=== PATIENT | female | born 1970 | race Hispanic/Latino ===

== ENCOUNTER 2020-01-31 18:59 | Emergency (ER) | payer SELFPAY ==
[~2020-01-31] VITALS: Ht 154.9 cm; Wt 135.2 kg
--- OUTSIDE RECORDS SUMMARY | 2020-01-31 19:01 | XMS REPORT | Clinical Summary ---
Author Author [facility] Address Unknown Phone Unavailable Care Team Providers Care Fit Model Name Role Phone PCP Unavailable Allergies No Known Allergies Medications Not on file Active Problems Not on file Encounters Care Team Description Date Type Specialty Palmer Sheldon MD 09/25/2019 Emergency Emergency Medicine after 01/30/2019 Social History Date Tobacco Use Types Packs/Day Years Used Never Assessed Sex Assigned at Date Recorded Not on file Industry Job Start Date Occupation Not on file Not on file Not on file Travel End Travel History Travel Start No recent travel history available. Last Filed Vital Signs Time Taken Vital Sign Reading 09/25/2019 6:01 PM [employer] Blood Pressure 150/86 09/25/2019 6:01 PM [employer] Pulse 74 09/25/2019 6:02 PM [employer] Temperature 36.2 C (97.1 F) 09/25/2019 6:01 PM [employer] Respiratory Rate 18 09/25/2019 6:01 PM [employer] Oxygen Saturation 97% - Inhaled Oxygen - Concentration 09/25/2019 6:01 PM [employer] Weight 136.5 kg (301 lb) 09/25/2019 6:01 PM [employer] Height 154.9 cm (5' 1") 09/25/2019 6:01 PM [employer] Body Mass Index 56.87 Plan of Treatment Not on file Results Not on fileafter 01/30/2019 Insurance Payer Benefit Subscriber ID Type Phone Address Plan / Group BLUE CROSS/BLUE [employer]IELD BCBS PPO xxxxxxxxxxxx PPO [phone] [address] [place] [address] CHOICE
[2020-01-31] MEDS ORDERED: ALBUTEROL SULF 0.083% NEB SOLN 3 ML NEB NEB STA (19:10)
[2020-01-31] MEDS ORDERED: ALBUTEROL/IPRATROPIUM 3 ML NEB ONE (19:15)
[2020-01-31] MEDS ORDERED: METHYLPREDNISOLONE SOD SUCC 125 MG/2ML VIAL IV ONE (19:15)
--- NOTE | 2020-01-31 19:16 | NUR ---
pt receiving hhn tx at this time
[2020-01-31 19:19] LABS: BASOPHILS # (AUTO) 0.1 (0.0-0.1); BASOPHILS % 0.5 % (0.0-1.0); EOSINOPHILS # (AUTO) 0.6 (0.0-0.4); EOSINOPHILS % 6.1 % (0.0-6.0); HEMATOCRIT 42.3 % (34.2-44.1); HEMOGLOBIN 13.5 g/dL (12.0-16.0); LYMPHOCYTES % 28.1 % (18.0-39.1); MEAN CORPUSCULAR HEMOGLOBIN 29.3 pg (28-32); MEAN CORPUSCULAR HGB CONC 31.9 g/dL (31-35); MONOCYTES # (AUTO) 0.8 (0.2-0.8); MONOCYTES % 7.1 % (4.4-11.3); NEUTROPHILS # (AUTO) 6.1 (2.1-6.9); NEUTROPHILS % 57.6 % (38.7-80.0); PLATELET COUNT 239 x10e3/uL (140-360)
--- NOTE | 2020-01-31 19:19 | Emergency Department Note ---
History of Present Illnes History of Present Illness Chief Complaint: Respiratory History of Present Illness This is a 49 year old female WITH H/O CHF AND ASTHMA WHO PRESENTS FOR WORSENING SOB AND WHEEZING FOR PAST 2 DAYS, PT IS VISITING FROM THE [facility]. Historian: Patient Arrival Mode: Car Onset (how long ago): day(s) (2) Location: CHEST Quality: SOB, WHEEZING Radiation: non-radiation Severity: mild Onset quality: gradual Duration (how long): day(s) (2) Timing of current episode: intermittent Progression: unchanged Chronicity: recurrent Relieving factors: none Exacerbating factors: movement Associated symptoms: cough, shortness of breath Treatments prior to arrival: none Risk factors: CHF Past Medical/Family History Physician Review I have reviewed the patient's past medical and family history. Any updates have been documented here. Past Medical History Recent Fever: No Clinical Suspicion of Infectio: No New/Unexplained Change in Ment: No Past Medical History: Hypertension, CHF, Asthma Past Surgical History: None, Tubal Ligation Social History Smoking Cessation: Never Smoker Counseling Performed: No Alcohol Use: None Any Illegal Drug Use: No TB Exposure/Symptoms: No Physically hurt or threatened: No Family History Family history of heart diseas: No Other Last Tetanus: UTD Any Pre-Existing Lines (PICC,: No Is patient up to date on immun: Yes Last Flu: UTD Last Pneumovax: UTD Review of Systems Review of Systems Constitutional: no symptoms EENTM: no symptoms Cardiovascular: no symptoms Respiratory: as per HPI, cough, dyspnea, wheezing Gastrointestinal: no symptoms Genitourinary: no symptoms Musculoskeletal: no symptoms Neurological: no symptoms Psychological: no symptoms Endocrine: no symptoms Hematological/Lymphatic: no symptoms Review of other systems All other systems reviewed and negative. Physical Exam Related Data Allergies: Coded Allergies: No Known Allergies (Unverified , 01/31/20) Triage Vital Signs Vital Signs Date Time Temp Pulse Resp B/P (MAP) Pulse Ox O2 Delivery O2 Flow Rate FiO2 01/31/20 19:01 99.1 90 18 154/84 97 Vital signs reviewed: Yes Physical Exam CONSTITUTIONAL Constitutional: obese HENT HENT: normocephalic, atraumatic, oropharynx clear/moist, nose normal HENT L/R: left ext ear normal, right ext ear normal EYES Eyes: PERRL, conjunctivae normal NECK Neck: ROM normal PULMONARY Pulmonary: effort normal, other (MODERATE WHEEZING TO LOWER LOBES, NO DISTRESS) CARDIOVASCULAR Cardiovascular: regular rhythm, heart sounds normal, capillary refill normal, normal rate GASTROINTESTINAL Abdominal: soft, nontender, bowel sounds normal GENITOURINARY Genitourinary: exam deferred SKIN Skin: warm, dry MUSCULOSKELETAL Musculoskeletal: ROM normal NEUROLOGICAL Neurological: alert, oriented x 3, no gross motor or sensory deficits PSYCHOLOGICAL Psychological: mood/affect normal, judgement normal Results Laboratory Laboratory Laboratory Tests Test 01/31/20 19:07 White Blood Count 10.51 x10e3/uL (4.8-10.8) Red Blood Count 4.60 x10e6/uL (3.6-5.1) Hemoglobin 13.5 g/dL (12.0-16.0) Hematocrit 42.3 % (34.2-44.1) Mean Corpuscular Volume 92.0 fL (81-99) Mean Corpuscular Hemoglobin 29.3 pg (28-32) Mean Corpuscular Hemoglobin Concent 31.9 g/dL (31-35) Red Cell Distribution Width 14.0 % (11.7-14.4) Platelet Count 239 x10e3/uL (140-360) Neutrophils (%) (Auto) 57.6 % (38.7-80.0) Lymphocytes (%) (Auto) 28.1 % (18.0-39.1) Monocytes (%) (Auto) 7.1 % (4.4-11.3) Eosinophils (%) (Auto) 6.1 % (0.0-6.0) Basophils (%) (Auto) 0.5 % (0.0-1.0) Neutrophils # (Auto) 6.1 (2.1-6.9) Lymphocytes # (Auto) 3.0 (1.0-3.2) Monocytes # (Auto) 0.8 (0.2-0.8) Eosinophils # (Auto) 0.6 (0.0-0.4) Basophils # (Auto) 0.1 (0.0-0.1) Absolute Immature Granulocyte (auto 0.06 x10e3/uL (0-0.1) Sodium Level 142 mmol/L (136-145) Potassium Level 3.9 mmol/L (3.5-5.1) Chloride Level 103 mmol/L (98-107) Carbon Dioxide Level 28 mmol/L (22-29) Anion Gap 14.9 mmol/L (8-16) Blood Urea Nitrogen 11 mg/dL (7-26) Creatinine 0.80 mg/dL (0.57-1.11) Estimat Glomerular Filtration Rate > 60 ML/MIN (60-) BUN/Creatinine Ratio 14 (6-25) Glucose Level 92 mg/dL (74-118) Calcium Level 9.7 mg/dL (8.4-10.2) Total Bilirubin 1.0 mg/dL (0.2-1.2) Aspartate Amino Transf (AST/SGOT) 21 IU/L (5-34) Alanine Aminotransferase (ALT/SGPT) 29 IU/L (0-55) Alkaline Phosphatase 72 IU/L (40-150) Creatine Kinase 100 IU/L (29-168) Creatine Kinase MB 0.80 ng/mL (0-5.0) Troponin I < 0.001 ng/mL (0-0.300) B-Type Natriuretic Peptide 16.6 pg/mL (0-100) Total Protein 7.6 g/dL (6.5-8.1) Albumin 3.7 g/dL (3.5-5.0) Globulin 3.9 g/dL (2.3-3.5) Albumin/Globulin Ratio 0.9 (0.8-2.0) Lab results reviewed: Yes Imaging Imaging results reviewed: Yes Impressions Patient Name: LARISSA VELASQUEZ MR #: [id number] : 1970 Age/Sex: 49/F Req #: [id number] Adm Physician: Ordered by: CINDY TSAI MD Report #: [id number] Location: ER Room/Bed: Procedure: [id number] DX/CHEST SINGLE (PORTABLE) Exam Date: 01/31/20 Exam Time: 1934 REPORT STATUS: Signed EXAMINATION: CHEST SINGLE (PORTABLE) INDICATION: Shortness of breath COMPARISON: None FINDINGS: AP view TUBES and LINES: None. LUNGS: Lungs are well inflated. Lungs are clear. There is no evidence of pneumonia or pulmonary edema. PLEURA: No pleural effusion or pneumothorax. HEART AND MEDIASTINUM: The cardiomediastinal silhouette is unremarkable. BONES AND SOFT TISSUES: No acute osseous lesion. Soft tissues are unremarkable. UPPER ABDOMEN: No free air under the diaphragm. IMPRESSION: No acute thoracic radiographic abnormality. Signed by: Maura Duenas MD on 01/31/2020 7:56 PM Dictated By: MAURA DUENAS MD 55 Transcribed By: NELA on 01/31/201955 COPY TO: CINDY TSAI MD~ Procedures 12 Lead ECG Interpretation Wardrobe Attendant: Interpreted by ED physician Rhythm: sinus rhythm Rate: normal (69) QRS axis: normal ST segments normal: Yes T waves normal: Yes Clinical Impression: normal ECG Critical Care Time Subsequent provider I assumed direction of critical care for this patient from another provider of my specialty. Assessment & Plan Assessment & Plan Problems: (1) Asthma exacerbation Assessment & Plan PT WITH H/O ASTHMA AND CHF PRESENTS WITH C/O INCREASED WHEEZING AND SOB OVER PAST 2 DAYS, CBC,CMP, BNP, EKG, CXR ORDERED TO EVAL FOR PULMONARY EDEMA, MYOCARDIAL INFARCTION, ELECTROLYTE ABNORMALITY, PNEUMONIA SOLU MEDROL 125 MG IV ORDERED ALBUTEROL NEB ORDERED DUONEB ORDERED Reassessment Reassessment time: 20:21 Reassessment pt doing better, no respiratory distress, wheezing is now mild in bases bilateral, pt states she feels much better Depart Disposition: HOME, SELF-CARE Last Vital Signs Date Time Temp Pulse Resp B/P (MAP) Pulse Ox O2 Delivery O2 Flow Rate FiO2 01/31/20 19:01 99.1 90 18 154/84 97 Medications in the ED Albuterol/ Ipratropium 3 ml STK-MED ONCE .ROUTE ; Start 01/31/20 at 19:15; Stop 01/31/20 at 19:10; Status DC CINDY TSAI MD January 31, 2020 19:19
[2020-01-31] MEDS ORDERED: ALBUTEROL SULF 0.083% NEB SOLN 3 ML NEB ONE (19:20)
[2020-01-31 19:37] LABS: ALANINE AMINOTRANSFERASE 29 IU/L (0-55); ALBUMIN 3.7 g/dL (3.5-5.0); ALBUMIN/GLOBULIN RATIO 0.9 (0.8-2.0); ALKALINE PHOSPHATASE 72 IU/L (40-150); ANION GAP 14.9 mmol/L (8-16); BLOOD UREA NITROGEN 11 mg/dL (7-26); BUN/CREATININE RATIO 14 (6-25); CALCIUM 9.7 mg/dL (8.4-10.2); CARBON DIOXIDE 28 mmol/L (22-29); CHLORIDE 103 mmol/L (98-107); CREATINE KINASE 100 IU/L (29-168); EST GLOMERULAR FILTRATION RATE > 60 ML/MIN (60-); GLUCOSE 92 mg/dL (74-118); POTASSIUM 3.9 mmol/L (3.5-5.1); SODIUM 142 mmol/L (136-145)
--- NOTE | 2020-01-31 19:59 | Diagnostic Imaging Report ---
EXAMINATION: CHEST SINGLE (PORTABLE) INDICATION: Shortness of breath COMPARISON: None FINDINGS: AP view TUBES and LINES: None. LUNGS: Lungs are well inflated. Lungs are clear. There is no evidence of pneumonia or pulmonary edema. PLEURA: No pleural effusion or pneumothorax. HEART AND MEDIASTINUM: The cardiomediastinal silhouette is unremarkable. BONES AND SOFT TISSUES: No acute osseous lesion. Soft tissues are unremarkable. UPPER ABDOMEN: No free air under the diaphragm. IMPRESSION: No acute thoracic radiographic abnormality. Signed by: Magdaleno Shipley MD on 01/31/2020 7:56 PM
== END 2020-01-31 20:30 | disposition home or self-care (01) ==
LOC: ER 18:59
DX: R06.02 Shortness of breath (principal); R05 Cough; J45.901 Unspecified asthma with (acute) exacerbation; I10 Essential (primary) hypertension; I50.9 Heart failure, unspecified
CPT/HCPCS: 36415; 71045; 80053; 82550; 82553; 83880; 84484; 85025; 93005; 94640; 99283; J2930